=== PATIENT | male | born 1995 | race Caucasian/White ===

== ENCOUNTER 2017-12-13 05:52 | Day surgery (SDC) | payer OTHER, SELFPAY ==
[2017-12-12 14:34] VITALS: BMI 26.6
[2017-12-13] MEDS ORDERED: CEFAZOLIN/Water 2 GM/20 ML SYRINGE ONE (06:12)
[2017-12-13] MEDS ORDERED: Midazolam HCl 2 mg/2 ml Vial ONE ×2 (06:26→07:00)
[2017-12-13] MEDS ORDERED: Fentanyl 100 MCG/2 ML VIAL ONE ×5 (06:27→10:00)
[2017-12-13] MEDS ORDERED: Ropivacaine 0.2% HCl/PF 20 ML ONE (06:27)
[2017-12-13] MEDS ORDERED: Bupivacaine PF 0.5% 30 ML VIAL ONE (06:51)
[2017-12-13] MEDS ORDERED: Neomycin-Polymyxin 1 ML AMP ONE (06:51)
[2017-12-13] MEDS ORDERED: Promethazine HCl 25 MG/ML VIAL IM PRN (07:27)
[2017-12-13] MEDS ORDERED: Ondansetron HCl/PF 4 MG/2 ML Vial IVP PRN (07:27)
[2017-12-13] MEDS ORDERED: Ropivacaine 0.2% 550 ML 550 ML NERVE BLCK SCH (07:27)
[2017-12-13] MEDS ORDERED: Zolpidem Tartrate 5 MG TAB PO PRN (07:27)
[2017-12-13] MEDS ORDERED: traMADol HCl 50 MG TAB PO PRN ×2 (07:27)
[2017-12-13] MEDS ORDERED: HYDROcodone/Acetaminophen 10/325 mg Tablet PO PRN ×2 (07:27)
[2017-12-13] MEDS ORDERED: Fentanyl 100 MCG/2 ML VIAL IV PRN (07:29)
[2017-12-13] MEDS ORDERED: HYDROmorphone 0.5 MG/0.5 ML SYRINGE ONE ×2 (08:57→09:02)
[2017-12-13] MEDS ORDERED: HYDROcodone/Acetaminophen 5/325 mg Tablet ONE (11:03)
[2017-12-13] MEDS ORDERED: Ketorolac Tromethamine 30 MG/ML VIAL IVP SCH (12:00)
--- NOTE | 2017-12-13 13:22 | RAD ---
INTRAOPERATIVE IMAGING OF THE LEFT ANKLE: 12/13/2017 HISTORY: ORIF of the left ankle. COMPARISON: None. FINDINGS: Three intraoperative images of the left ankle demonstrate a lateral screw and plate fixation associat ed with the left fibula. An additional obliquely oriented screw overlies the distal left fibular sha ft. One of the screws associated with the lateral fibular screw and plate fixation traverses the dis bonita tibia. IMPRESSION: Postoperative changes. POS: [facility] EDUARD[facility]
[2017-12-13] MEDS ORDERED: Ropivacaine 0.5% HCl/PF (150 MG/30 ML VIAL) ONE (13:29)
[2017-12-13] MEDS ORDERED: Dexamethasone 20 MG/5 ML VIAL ONE (14:00)
[2017-12-13] MEDS ORDERED: Lidocaine 1% PF 5 ML VIAL ONE (14:00)
[2017-12-13] MEDS ORDERED: Ketorolac Tromethamine 30 MG/ML VIAL ONE (14:00)
[2017-12-13] MEDS ORDERED: PROPOFOL 200 MG/20 ML VIAL ONE (14:00)
[2017-12-13] MEDS ORDERED: Ondansetron HCl/PF 4 MG/2 ML Vial ONE (14:00)
--- NOTE | 2017-12-16 11:39 | OP ---
DATE OF PROCEDURE: 12/13/2017 PREOPERATIVE DIAGNOSIS: Left lateral malleolus fracture with disruption of syndesmosis. POSTOPERATIVE DIAGNOSIS: Left lateral malleolus fracture with disruption of syndesmosis. SURGICAL PROCEDURE: Open reduction and internal fixation left lateral malleolus with syndesmotic scr ew placement. ANESTHESIA: General. SURGEON: Delfin Lozano M.D. TOURNIQUET TIME: Approximately 45 minutes at 300 mmHg. IMPLANTS: Synthes small fragment 1/3rd tubular hole plate with a 4.0 mm rescue screw for the syndesm osis disruption. COMPLICATIONS: None. DRAINS: None. SPECIMEN: None. OUTCOME: Satisfactory. INDICATIONS: The patient is a 22-year-old gentleman status post injury to left ankle approximately 2 weeks ago after playing with friend's dog. He sustained a lateral malleolus with disruption of the syndesmosis with lateral shift of the talus and widening of the mortise. After discussion with patie nt including risks and benefits, we decided to proceed with open reduction and internal fixation and stabilizing of the mortise. Informed consent has been obtained. I believe all questions have been a nswered. DESCRIPTION OF PROCEDURE: The patient was brought to the operating room and a timeout performed foll owed by induction of general anesthesia. The patient was then positioned supine on the OR table. A sterile prep and drape was performed of the left lower extremity. The limb was exsanguinated with Es march bandage, tourniquet inflated to 300 mmHg. Next, a lateral incision was made over the distal fi bula after skin was sharply incised, dissection was carried down bluntly anterior to the peroneal ten dons and musculature exposing the lateral cortex of the distal fibula. The fracture hematoma was rem romario from the wound using a curette and then lavaged with saline. Next, the fracture was reduced and held in place with bone tenaculums and then a single anterior to posterior interfragmentary screw wa s applied in standard fashion. This was followed by application of an 8-hole 1/3rd tubular plate dionna ng the lateral cortex of the distal fibula. This was held in place with 3 cortical screws proximally and a cortical and cancellous screws distally. Next, the mortise was reduced and held in place with bone tenaculum and then a through and through 4.0 mm rescue screw was passed through the plate of th e fibula and through both cortices of the fibula and across both cortices of the distal tibia holding the mortise secure and reducing the talus to an anatomic alignment. At the completion of this, AP, lateral C-arm images were obtained to confirm the reduction and appropriate positioning of the hardwa re. The wound was then irrigated with bulb syringe and closed in layers with 0 Vicryl for the fascia , 2-0 Vicryl subcutaneously, and then sai for the skin. A Xeroform gauze and Webril followed by fiberglass splint was applied to the ankle. Tourniquet was let down at the completion of dressing, a nd then patient was transferred to recovery room in stable condition. There were no complications. Patient tolerated the procedure well.
== END 2017-12-13 12:45 | disposition home or self-care (01) ==
LOC: SDC 05:52
PROVIDERS: ATTEND Orthopaedic Surgery
PROC: 0QSK04Z Reposition Left Fibula with Internal Fixation Device, Open Approach (ICD-10-PCS; principal; 2017-12-13)
DX: S82.62XA Displaced fracture of lateral malleolus of left fibula, initial encounter for closed fracture (principal); M24.872 Other specific joint derangements of left ankle, not elsewhere classified; Z98.890 Other specified postprocedural states; Z86.14 Personal history of Methicillin resistant Staphylococcus aureus infection
CPT/HCPCS: 76001; 96374; A4306; C1713; J1100; J1170; J1885; J2001; J2250; J2405; J2704; J2795; J3010; S0020

== ENCOUNTER 2018-03-18 11:00 | Day surgery (SDC) | payer OTHER, SELFPAY ==
[2018-03-06 12:14] VITALS: BMI 26.6
[2018-03-18] MEDS ORDERED: CEFAZOLIN/Water 2 GM/20 ML SYRINGE ONE ×2 (12:09→12:25)
[2018-03-18] MEDS ORDERED: Midazolam HCl 2 mg/2 ml Vial ONE (12:26)
[2018-03-18] MEDS ORDERED: Lidocaine 1% (PF) 30 ML VIAL ONE (12:51)
[2018-03-18] MEDS ORDERED: Fentanyl 100 MCG/2 ML VIAL ONE (13:04)
[2018-03-18] MEDS ORDERED: Bupivacaine PF 0.5% 30 ML VIAL ONE (13:08)
--- NOTE | 2018-03-18 13:17 | OP ---
DATE OPERATION: 03/18/2018 OPERATION: Left ankle hardware removal. PREOPERATIVE DIAGNOSIS: Fracture of left ankle, status post open reduction internal fixation with syndesmosis screw. POSTOPERATIVE DIAGNOSIS: Fracture of left ankle, status post open reduction internal fixation with syndesmosis screw. COMPLICATIONS: None. ESTIMATED BLOOD LOSS: Minimal. SURGEON: Glen Bose M.D. 1 st LABORER OPERATOR: Alison Arora IMPLANTS: None. INDICATIONS FOR PROCEDURE: Mr. Gaffney is a 22-year-old male who fractured his left ankle. He was treated with open reduction internal fixation and required a syndesmosis screw. He has now been indicated for screw removal to free up his syndesmosis and improve his ankle range of motion. He is aware of risks and benefits. He wants to proceed. DESCRIPTION OF PROCEDURE: Mr. Gaffney was identified in the preoperative holding area. His correct extremity was marked. He was carried to the operating room. He was positioned supine. General anesthesia was induced. A multidisciplinary timeout was performed. The left lower extremity was prepped and draped in sterile fashion. At this point, we began the procedure with evaluation under fluoroscopy. The patient's syndesmosis screw was identified and the correct start point was marked. We made a small incision. We then dissected down through the subcutaneous tissues. We exposed the screw head. The screw was removed with an appropriate screwdriver. We took x-ray images including a stress view x- ray. This confirmed no widening and that the ankle was well healed. We irrigated and closed the small wound with a nylon suture. A sterile dressing was applied. The patient was taken to the recovery room at this point without complication. JONAH
--- NOTE | 2018-03-18 16:14 | RAD ---
PORTABLE CHEST: Date: 03/18/18 HISTORY: Dyspnea. Possible aspiration. FINDINGS: Heart size and mediastinum are within normal limits. Lungs are clear of infiltrates. No signs of pulm onary edema. IMPRESSION: No active intrathoracic disease. POS: [facility]
[2018-03-18] MEDS ORDERED: HYDROcodone/Acetaminophen 5/325 mg Tablet ONE (16:24)
--- NOTE | 2018-03-18 16:24 | RAD ---
LEFT ANKLE 3 VIEWS: Date: 03/18/18 HISTORY: FINDINGS/IMPRESSION: Metal plate and screws have been placed, stabilizing the distal fibula. POS: [facility]
[2018-03-18] MEDS ORDERED: Ondansetron HCl/PF 4 MG/2 ML Vial ONE (16:37)
[2018-03-18] MEDS ORDERED: PROPOFOL 200 MG/20 ML VIAL ONE (16:37)
[2018-03-18] MEDS ORDERED: Ketorolac Tromethamine 30 MG/ML VIAL ONE (16:37)
--- NOTE | 2018-03-19 07:27 | RAD ---
LEFT ANKLE THREE VIEWS: 03/18/18 HISTORY: 22-year-old male with history of hardware removal. The previously noted large transverse fixation screw stabilizing the distal fibula and tibia has been removed when compared to the prior 12/13/17 study. There is some patchy bone demineralization. IMPRESSION: Removal of the large horizontal fixation screws stabilizing the fibula and tibia. The metal plate and screws stabilizing the fibula remain intact. POS: [facility]
== END 2018-03-18 17:05 | disposition home or self-care (01) ==
LOC: SDC 11:00
PROVIDERS: ATTEND Orthopaedic Surgery
PROC: 2W5RXYZ Removal of Other Device on Left Lower Leg (ICD-10-PCS; principal; 2018-03-18)
DX: Z47.2 Encounter for removal of internal fixation device (principal); F17.200 Nicotine dependence, unspecified, uncomplicated
CPT/HCPCS: 71045; 76001; J1885; J2001; J2250; J2405; J2704; J3010; J7620; S0020